=== PATIENT | male | born 1975 | race African-American/Black ===

== ENCOUNTER 2023-08-20 06:45 | Emergency (ER) | payer OTHER ==
[~2023-08-20] VITALS: Ht 177.8 cm; Wt 90.9 kg
[2023-08-20] MEDS ORDERED: DiphenhydrAMINE HCL 50 MG/ML VIAL IM ONE (07:15)
[2023-08-20] MEDS ORDERED: LORazepam 2 MG/ML VIAL IM ONE (07:15)
[2023-08-20] MEDS ORDERED: HALOPERIDOL LACTATE 5 MG/ML VIAL IM ONE (07:15)
[2023-08-20 08:12] VITALS: TEMP 98.8
[2023-08-20 08:23] LABS: EOSINOPHILS % (AUTO) 0.8 % (1.0-6.0); HEMATOCRIT 49.1 % (41-53); HEMOGLOBIN 16.5 g/dL (13.5-17.5); LYMPHOCYTES # (AUTO) 2.1 K/uL (1.0-4.8); LYMPHOCYTES % (AUTO) 26.7 % (22.0-44.0); MEAN CORPUSCULAR HGB CONC 33.7 G/dL (31.0-37.0); MEAN CORPUSCULAR VOLUME 95 fL (80-100); MONOCYTES # (AUTO) 0.4 K/uL (0.1-1.0); MONOCYTES % (AUTO) 5.6 % (2.0-9.0); NEUTROPHILS # (AUTO) 5.1 K/uL (1.8-7.7); NEUTROPHILS % (AUTO) 65.9 % (40.0-70.0); PLATELET COUNT (AUTO) 330 K/uL (150-450); RED BLOOD CELL COUNT(AUTO) 5.17 MIL/uL (4.50-5.90); RED CELL DISTRIBUTION WIDTH 13.7 % (11.5-14.5); WHITE BLOOD COUNT (AUTO) 7.7 K/uL (4.5-11.0)
[2023-08-20 08:28] LABS: COVID AG,FIA SOURCE NASAL SWAB
[2023-08-20 08:32] LABS: ANION GAP 14 mmol/L (8-16); CALCIUM, TOTAL 8.5 mg/dL (8.8-10.5); CARBON DIOXIDE 24 mmol/L (22-29); CHLORIDE 105 mmol/L (98-107); CREATININE 1.11 mg/dL (0.60-1.30); GLOMERULAR FILTR. RATE CALC > 60 mL/min (>60); GLUCOSE,RANDOM 71 mg/dL (70-110); POTASSIUM 3.4 mmol/L (3.5-5.1); SODIUM SERUM 143 mmol/L (136-145); UREA NITROGEN, BLOOD 12 mg/dL (7-18)
[2023-08-20 08:37] LABS: ALCOHOL, BLOOD (SERUM) 247 mg/dL (0-10)
[2023-08-20 08:38] LABS: ALANINE AMINOTRANSFERASE 30 U/L (12-78); ALBUMIN 3.8 g/dL (3.4-5.0); ALKALINE PHOSPHATASE 86 U/L (46-116); ASPARTATE AMINOTRANSFERASE 30 U/L (15-37); BILIRUBIN,TOTAL 0.3 mg/dL (0.1-1.0); TOTAL PROTEIN, SERUM 7.3 g/dL (6.4-8.2)
[2023-08-20 08:46] LABS: SARS-COV2 (COVID) ANTIGEN,FIA Negative (Negative)
[2023-08-20] MEDS ORDERED: NICOTINE POLACRILEX 4 MG GUM CHEW ONE (12:30)
[2023-08-20] MEDS ORDERED: LORazepam 1 MG TABLET PO ONE (12:30)
[2023-08-20] MEDS ORDERED: LORazepam 2 MG TABLET PO PRN (18:15)
[2023-08-20] MEDS ORDERED: ZOLPIDEM TARTRATE 10 MG TABLET PO PRN (18:15)
[2023-08-20] MEDS ORDERED: HALOPERIDOL 5 MG TABLET PO PRN (18:15)
[2023-08-20 18:27] VITALS: BP 128/83; PULSE 63; RESP 16
== END 2023-08-21 01:42 | disposition short-term general hospital (02) ==
LOC: EMS 06:45
DX: F32.9 Major depressive disorder, single episode, unspecified (principal); R45.851 Suicidal ideations; E87.6 Hypokalemia; F10.10 Alcohol abuse, uncomplicated; F10.129 Alcohol abuse with intoxication, unspecified; Z86.59 Personal history of other mental and behavioral disorders; Z20.822 Contact with and (suspected) exposure to COVID-19; Y90.9 Presence of alcohol in blood, level not specified
CPT/HCPCS: 99291; 87426; 80053; 85025; 36415; 96372; G0480; J1200; J1630; J2060; Q9967